=== PATIENT | female | born 1985 | race American Indian/Alaskan Native ===

== ENCOUNTER 2022-01-24 00:19 | Emergency (ER) | payer MEDICAID ==
[2022-01-24 01:16] VITALS: BP 136/67
== END 2022-01-24 07:40 | disposition left against medical advice (07) ==
LOC: ED 00:19
DX: H66.93 Otitis media, unspecified, bilateral (principal); Z53.21 Procedure and treatment not carried out due to patient leaving prior to being seen by health care provider